=== PATIENT | male | born 1950 | race Caucasian/White ===

== ENCOUNTER → 2019-12-20 08:59 | Outpatient (BNVA) | payer MEDICARE, SELFPAY | PROVIDERS: PCP Internal Medicine; Referring Provider Internal Medicine; Visit Provider Nurse Practitioner Family | DX: Z01.810 Encounter for preprocedural cardiovascular examination (principal); I25.10 Atherosclerotic heart disease of native coronary artery without angina pectoris; I49.9 Cardiac arrhythmia, unspecified; I10 Essential (primary) hypertension; E78.5 Hyperlipidemia, unspecified; Z95.5 Presence of coronary angioplasty implant and graft | CPT/HCPCS: 99214 ==

== ENCOUNTER → 2020-07-17 09:40 | Outpatient (BNVA) | payer MEDICARE, SELFPAY | PROVIDERS: PCP Internal Medicine; Referring Provider Internal Medicine Cardiovascular Disease; Visit Provider Internal Medicine Cardiovascular Disease | DX: I25.10 Atherosclerotic heart disease of native coronary artery without angina pectoris (principal); I47.2 Ventricular tachycardia; Z79.899 Other long term (current) drug therapy; Z87.891 Personal history of nicotine dependence | CPT/HCPCS: 99212 ==

== ENCOUNTER 2020-07-22 07:38 | Outpatient (REF) | payer MEDICARE, SELFPAY ==
[2020-07-22 09:36] LABS: Cholesterol 121 mg/dL; HDL Cholesterol 38 mg/dL; LDL Cholesterol Calculated 66 mg/dl; Triglycerides 89 mg/dL
== END 2020-07-22 07:39 | disposition home or self-care (01) ==
LOC: HO.LAB 07:38
PROVIDERS: PCP Internal Medicine; Visit Provider Internal Medicine Cardiovascular Disease
DX: I25.10 Atherosclerotic heart disease of native coronary artery without angina pectoris (principal)
CPT/HCPCS: 36415; 80061

== ENCOUNTER → 2021-07-05 09:25 | Outpatient (REF) | payer MEDICARE, SELFPAY ==
--- NOTE | 2021-07-05 09:31 | CA_ITS ---
Transthoracic Echocardiogram Patient (Last, First, Middle): Roamn Barfield F Gender: Male Date of : 1950 Age: 70 Procedure Date: 07/05/2021 Procedure Type: Transthoracic Echocardiogram Location: OP Height: 185.42 cm Weight: 95.26 kg BSA: 2.20 m2 Heart Rate: bpm BP: 132 / 52 mmHg Plow Mechanic: REDDY Referring MD: Christopher Templeton MD Snuff Grinder And Screener: Christopher Templeton MD Symptoms: I47.2 - Ventricular tachycardia Study Quality: Adequate ECG Rhythm: Bradycardia Conclusions: - 1. Normal LV systolic function with grade 1 diastolic dysfunction 2. Normal cardiac valvular Doppler 3. No gross pericardial effusion Findings Left Ventricle Normal left ventricular size, thickness, and systolic function. The visually estimated ejection fraction is between 55-60%. Spectral Doppler is indicative of an impaired relaxation filling pattern. E/E prime ratio is <8, consistent with normal filling pressures. Evidence suggests grade I (mild) diastolic dysfunction. Right Ventricle Normal right ventricular cavity size and systolic function. Atria The left atrium is normal in size. There is no evidence of interatrial shunt. The right atrium is normal in size. Aortic Valve The aortic valve structure and function is likely normal. There is no aortic valve stenosis. There is no aortic valve regurgitation. Mitral Valve Normal mitral valve structure and function. There is trace mitral valve regurgitation. There is no mitral valve stenosis. Pulmonic Valve The pulmonic valve was not well visualized. Tricuspid Valve Likely normal tricuspid valve structure and function. Tricuspid regurgitation envelope is inadequate for calculation of right ventricular systolic pressure. Great Vessels All visible segments of the aorta are normal in size. The pulmonary artery was not well visualized. Small plaque is seen in the sino tubular ridge and arch. Venous The inferior vena cava is normal in size and collapses greater than 50% with inspiration. Pericardium/Pleural There is no evidence of pericardial effusion. Prior Study Comparison Changes noted compared to prior study dated: 11/16/2019. LV systolic function is marginally better Measurements 2D Linear Measurements IVSd: 0.86 0.6-0.9/0.6-1.0 cm LVIDd: 5.38 3.9-5.3/4.2-5.9 cm LVIDd Index: 2.45 2.4-3.2/2.2-3.1 cm/m2 LVIDs: 3.91 2.0-3.6 cm LVPWd: 0.63 0.7-1.1 cm LA Diam: 4.00 2.7-3.8/3.0-4.0 cm LAIDs Index: 1.82 1.5-2.3 cm/m2 LV Mass: 174.09 67-162/88-224 g LV Mass Index: 79.13 43-95/49-115 g/m2 LVOT Diam: 2.30 3.0+(-)1.3 cm Mitral Valve MV Pk E: 0.37 MV PK A: 0.52 MV Decel Time: 504.00 E/A: 0.70 E'Lateral: 5.10 E'Medial: 3.98 E/E' Med: 9.20 E/E' Lat: 7.20 PHT: 148.00 MVA PHT: 1.49 Decel [place]: 0.73 Aortic Valve AoV Pk Garry: 1.28 AoV Mn Garry: 0.85 AoV VTI: 0.31 AoV Pk Grad: 7.00 Aov Mn Grad: 3.00 LAURENT Cont.VTI: 2.75 LVOT LVOT Pk Garry: 0.97 LVOT Mn Garry: 0.60 LVOT VTI: 0.20 LVOT Pk Grad: 4.00 LVOT Mn Grad: 2.00 LVOT Diam: 2.30 LVOT Area: 4.15 Diastolic Function MV Pk E: 0.37 MV Pk A: 0.52 E/A: 0.70 E'Medial: 3.98 E/E' Med: 9.20 E' Laterial: 5.10 E/E' Lat: 7.20 Right Ventricle TAPSE (mm): 22.90 TVS' Garry: 12.50 Tricuspid Valve RA Press: 3.00 Great Vessels Aorta Sinus of Valsalva: 3.20 2.0-3.[address] [place]: 2.70 1.7-3.4 cm Ao Asc: 3.30 2.1-3.4 cm Pulmonary Veins Pulm Vein S/D 0.90 Pulmonary Valve PV Pk Garry: 1.48 Peak PV Grad: 9.00 Updated in Other Vendor System with Status of Final Christopher Templeton MD electronically signed on 07/06/2021 3:39:56 PM with status of Final
== END ==
LOC: HO.CARD 09:25
PROVIDERS: PCP Physician Assistant Medical; Visit Provider Internal Medicine Cardiovascular Disease
DX: I25.10 Atherosclerotic heart disease of native coronary artery without angina pectoris (principal); I47.2 Ventricular tachycardia
CPT/HCPCS: 93306

== ENCOUNTER → 2021-07-17 09:18 | Outpatient (BNVA) | payer MEDICARE, SELFPAY | PROVIDERS: PCP Physician Assistant Medical; Referring Provider Physician Assistant Medical; Visit Provider Internal Medicine Cardiovascular Disease | DX: I25.10 Atherosclerotic heart disease of native coronary artery without angina pectoris (principal); I47.2 Ventricular tachycardia; Z79.82 Long term (current) use of aspirin; Z79.899 Other long term (current) drug therapy | CPT/HCPCS: 93005; 99212 ==

== ENCOUNTER → 2022-07-22 08:18 | Outpatient (BNVA) | payer MEDICARE, SELFPAY | PROVIDERS: PCP Physician Assistant Medical; Referring Provider Physician Assistant Medical; Visit Provider Internal Medicine Cardiovascular Disease | DX: I25.10 Atherosclerotic heart disease of native coronary artery without angina pectoris (principal); I47.20 Ventricular tachycardia, unspecified; Z79.899 Other long term (current) drug therapy | CPT/HCPCS: 93005; 99212 ==

== ENCOUNTER 2022-07-26 13:28 | Outpatient (REF) | payer MEDICARE, SELFPAY ==
[2022-07-26 14:56] LABS: Cholesterol 129 mg/dL; HDL Cholesterol 38 mg/dL; LDL Cholesterol Calculated 71 mg/dl; Triglycerides 101 mg/dL
[2022-07-29 15:59] LABS: CRP High Sensitivity 0.4 mg/L
== END 2022-07-26 13:29 | disposition home or self-care (01) ==
LOC: HO.LAB 13:28
PROVIDERS: PCP Physician Assistant Medical; Visit Provider Internal Medicine Cardiovascular Disease
DX: I25.10 Atherosclerotic heart disease of native coronary artery without angina pectoris (principal); E78.5 Hyperlipidemia, unspecified
CPT/HCPCS: 36415; 80061; 86141

== ENCOUNTER 2023-07-22 10:50 | Outpatient (AMB) | payer MEDICARE, SELFPAY ==
--- NOTE | 2023-07-22 11:05 | A.OFFVIS_ITS ---
Vital Signs 07/22/23 11:06 Height 6 ft 1 in Weight 205 lb 0.478 oz BMI 27.0 BP 140/70 H Blood Pressure Location Lt brachial Position Sitting Pulse 53 Intake Visit Reasons: 1 yr fu Intake Note: 1 year follow-up with ekg feeling good Allergies No Known Allergies [No Known Allergies*] Allergy (Verified 07/22/22 08:32) Medication List - Last Reconciled 07/22/23 by Christopher Templeton MD allopurinol 300 mg PO DAILY amlodipine 10 mg PO DAILY aspirin 81 mg PO DAILY 90 days atorvastatin 40 mg PO DAILY metoprolol succinate ER 12.5 mg (1/2 x 25 mg) PO DAILY 90 days HPI Comments Details: Roman comes for follow-up. He has been doing very well from cardiac perspective. He says he has been exercising regularly can walk up to 80 minutes on a treadmill without symptoms. Denies any prolonged palpitation irregular heartbeat. Denies any lightheadedness, syncope. Denies any heart failure symptoms. Takes all his medications. No recent labs. [facility] Medical History RVOT ventricular tachycardia Hyperlipidemia Hypertension Ventricular arrhythmia History of [place] (myocardial infarction) Coronary artery disease Surgical History Stented coronary artery Family History Father Diabetes Mother CVD (cardiovascular disease) Social History Patient Tobacco Use Status: Never used Tobacco Review of Systems Const Denies chills, Denies fatigue, Denies fever(s), Denies frequent falls, Denies weakness, Denies weight gain and Denies weight loss ENT Denies dizziness Card Denies chest pain, Denies leg edema, Denies lightheadedness, Denies palpitations, Denies dyspnea, Denies dyspnea on exertion, Denies orthopnea and Denies other (loss of consciousness) Resp Denies cough, Denies dyspnea and Denies dyspnea on exertion GI Denies hematochezia and Denies change in stool character Musc Denies abnormal gait, Denies muscle weakness, Denies numbness, Denies radiating pain into limb and Denies tingling Neuro Denies abnormal gait, Denies dizziness, Denies frequent falls, Denies numbness, Denies tingling and Denies weakness Endo Denies fatigue and Denies palpitations Physical Exam Vital Signs: Last Vital Signs Pulse 53 07/22/23 11:06 BP 140/70 H 07/22/23 11:06 BMI result Body Mass Index 27.0 Const General: cooperative, comfortable, no acute distress, alert, awake, Physically active and well groomed Nutritional Appearance: thin Orientation/consciousness: patient oriented x3 Limitations: no limitations Neck Neck: Yes trachea midline, Yes supple and Yes no JVD Carotids: no bruits Resp Effort & Inspection: normal respiratory effort Auscultation: clear to auscultation bilaterally Cardio Jugular venous distension: no JVD Palpation: normal PMI Rate: regular rate Rhythm: regular rhythm Heart sounds: S1 normal heart sound present and S2 normal heart sound present Skin General skin exam: no rashes or lesions noted Neuro General: patient oriented x3 and no focal motor deficits Extrem General: Yes no clubbing, cyanosis or edema Psych Appearance: grossly normal Office Procedures EKG Details: EKG shows normal sinus rhythm with PACs with no acute ST T wave changes [id number], Complete Assessment & Plan Assessment & Plan (1) Coronary artery disease: Comment: history of OK with cardiac catheterization and coronary stent to OM branch 12/2018. Exercise stress test done 11/16/2019 showing good exercise tolerance, PVCs during exercise, no EKG changes of ischemia. He was started on low-dose metoprolol XL 12.5mg daily. Echo done 11/16/2019 shows EF 50-55%, no regional wall motion abnormality, no valve abnormalities. Today he has no cardiac complaints, EKG shows sinus Kameron with PACs, rate 52. He exercises 40 min daily on treadmill and tolerates well. Code(s): I25.10 - Atherosclerotic heart disease of [place] coronary artery without angina pectoris Category: Medical Plan: Coronary artery disease with prior OK with stenting of the OM branch in 2019. No symptoms at good workload. Will check myocardial perfusion imaging in 6 months time for surveillance of CAD. This was discussed with him. Continue aggressive medical therapy. Blood pressure is currently well optimized. Advised to monitor blood pressure at home maintain a log. Goal blood pressure less than 130/84. Continue low-dose aspirin therapy for life. Continue high- intensity statin therapy. Target goal LDL closer to 70 mg/dL. Advised lipid panel near future. Encouraged to continue to participate in physical activity as tolerated. (2) RVOT ventricular tachycardia: Code(s): I47.2 - Ventricular tachycardia Category: Medical Plan: RVOT ventricular tachycardia at this time of diagnose of myocardial infarction. Currently doing well on low-dose metoprolol therapy. Continue the same. Avoidance of stimulants was discussed. With follow-up Holter monitor in 6 months time. Follow-up echocardiogram 6 months time. Advised to call me with any new symptoms. Follow up in the clinic in 1 year's time, sooner p.r.n.. Thank you for allowing me to partake in his care Orders: Orders NM cardiolite stress test 6 Months I25.10 - Atherosclerotic heart disease of [place] coronary artery without angina pectoris ECG 3 day holter monitor 6 Months I47.2 - Ventricular tachycardia CA stress test 6 Months I25.10 - Atherosclerotic heart disease of [place] coronary artery without angina pectoris Lipid Panel Today I25.10 - Atherosclerotic heart disease of [place] coronary artery without angina pectoris CA echo transthoracic complete 6 Months I47.2 - Ventricular tachycardia Coding Level of Care Code Est Pt Level 4 (65889) Diagnoses Coronary artery disease I25.10 RVOT ventricular tachycardia I47.2 CPT Codes EKG - CPT: 51633-[id number], Complete ([id number])
[2023-07-22 11:06] VITALS: BP 140/70; PULSE 53; BMI 27.0
== END 2023-07-22 11:36 | disposition home or self-care (01) ==
PROVIDERS: PCP Physician Assistant Medical; Visit Provider Internal Medicine Cardiovascular Disease
DX: I25.10 Atherosclerotic heart disease of native coronary artery without angina pectoris (principal); I47.20 Ventricular tachycardia, unspecified
CPT/HCPCS: 93010; 99214

== ENCOUNTER → 2023-07-22 10:50 | Outpatient (BNVA) | payer MEDICARE, SELFPAY | PROVIDERS: PCP Physician Assistant Medical; Visit Provider Internal Medicine Cardiovascular Disease | DX: I25.10 Atherosclerotic heart disease of native coronary artery without angina pectoris (principal); I47.20 Ventricular tachycardia, unspecified; I25.2 Old myocardial infarction; Z79.82 Long term (current) use of aspirin; Z79.899 Other long term (current) drug therapy | CPT/HCPCS: 93005; 99212 ==

== ENCOUNTER → 2024-02-23 07:47 | Outpatient (REF) | payer MEDICARE, SELFPAY ==
--- NOTE | 2024-02-23 08:04 | CA_ITS ---
Transthoracic Echocardiogram Amended Patient (Last, First, Middle): Roman Barfield F Gender: Male Date of : 1950 Age: 73 Procedure Date: 02/23/2024 Procedure Type: Transthoracic Echocardiogram Location: OP Height: 185. cm Weight: 90.72 kg BSA: 2.15 m2 Heart Rate: 46 bpm BP: 125 / 55 mmHg Retail Operations Specialist: ERIC Referring MD: Christopher Templeton MD Lathe Machinist: Christopher Templeton MD Symptoms: I47.2 - Ventricular tachycardia Study Quality: Adequate ECG Rhythm: Bradycardia w/PACs Conclusions: - 1. Normal LV ejection fraction 55-60% with impaired relaxation filling pattern 2. Cardiac valvular Dopplers within normal limits 3. Mildly dilated ascending aorta at 3.7 cm 4. No gross pericardial effusion Findings Left Ventricle Normal left ventricular size, thickness, and systolic function. The visually estimated ejection fraction is between 55-60%. Spectral Doppler is indicative of an impaired relaxation filling pattern. Peak GLS is -19%, within normal limits. Right Ventricle Normal right ventricular cavity size and systolic function. Atria The left atrium is likely dilated. There is no evidence of interatrial shunt. The right atrium is normal in size. Aortic Valve The aortic valve was not well visualized. There is no aortic valve stenosis. There is no aortic valve regurgitation. Mitral Valve Likely normal mitral valve structure and function. There is trace mitral valve regurgitation. There is no mitral valve stenosis. Pulmonic Valve The pulmonic valve was not well visualized. Tricuspid Valve Likely normal tricuspid valve structure and function. Tricuspid regurgitation envelope is inadequate for calculation of right ventricular systolic pressure. Normal right atrial pressure. Great Vessels The pulmonary artery was not well visualized. There is mild dilatation of the ascending aorta measuring 3.70 cm. Small plaque is seen in the sino tubular ridge. Venous The inferior vena cava is normal in size and collapses greater than 50% with inspiration. Pericardium/Pleural There is no evidence of pericardial effusion. Measurements 2D Linear Measurements IVSd: 0.92 0.6-0.9/0.6-1.0 cm LVIDd: 5.86 3.9-5.3/4.2-5.9 cm LVIDd Index: 2.73 2.4-3.2/2.2-3.1 cm/m2 LVIDs: 3.11 2.0-3.6 cm LVPWd: 0.88 0.7-1.1 cm Ao Root: 3.20 2.1-3.5 cm LA Diam: 4.60 2.7-3.8/3.0-4.0 cm LAIDs Index: 2.14 1.5-2.3 cm/m2 LV Mass: 256.87 67-162/88-224 g LV Mass Index: 119.48 43-95/49-115 g/m2 LVOT Diam: 2.30 3.0+(-)1.3 cm 2D Volumes LA Vol: 22.40 2D Systolic Function EF 4C: 53.80 >55% EF 2C: 59.70 >55% EF BiP: 56.20 >55% Mitral Valve MV Pk E: 0.67 MV PK A: 0.90 MV Decel Time: 262.00 E/A: 0.70 E'Lateral: 7.58 E'Medial: 5.73 E/E' Med: 11.70 E/E' Lat: 8.90 PHT: 77.00 MVA PHT: 2.86 Decel [place]: 2.57 Aortic Valve AoV Pk Garry: 1.53 AoV Mn Garry: 1.03 AoV VTI: 0.37 AoV Pk Grad: 9.00 Aov Mn Grad: 5.00 LAURENT Cont.VTI: 2.79 LVOT LVOT Pk Garry: 1.12 LVOT Mn Garry: 0.72 LVOT VTI: 0.25 LVOT Pk Grad: 5.00 LVOT Mn Grad: 2.00 LVOT Diam: 2.30 LVOT Area: 4.15 Diastolic Function MV Pk E: 0.67 MV Pk A: 0.90 E/A: 0.70 E'Medial: 5.73 E/E' Med: 11.70 E' Laterial: 7.58 E/E' Lat: 8.90 Right Ventricle TAPSE (mm): 26.40 TVS' Garry: 12.90 Great Vessels Aorta Ao Root-2D: 3.20 2.0-3.7 cm Sinus of Valsalva: 3.20 2.0-3.5 cm Ao Asc: 3.70 2.1-3.4 cm Ao Arch: 3.10 Pulmonary Valve PV Pk Garry: 1.64 Peak PV Grad: 11.00 Updated in Other Vendor System with Status of Final Christopher Templeton MD electronically signed on 02/23/2024 9:51:46 AM with status of Final
== END ==
LOC: HO.CARD 07:47
PROVIDERS: PCP Physician Assistant Medical; Visit Provider Internal Medicine Cardiovascular Disease
DX: I47.20 Ventricular tachycardia, unspecified (principal)
CPT/HCPCS: 93242; 93306; 93356

== ENCOUNTER → 2024-02-23 08:04 | Outpatient (BNV) | payer MEDICARE, SELFPAY | PROVIDERS: PCP Physician Assistant Medical; Visit Provider Internal Medicine Cardiovascular Disease | DX: I25.10 Atherosclerotic heart disease of native coronary artery without angina pectoris (principal); R93.1 Abnormal findings on diagnostic imaging of heart and coronary circulation | CPT/HCPCS: 93306; 93356 ==

== ENCOUNTER → 2024-03-05 08:17 | Outpatient (REF) | payer MEDICARE, SELFPAY ==
--- NOTE | ~2024-03-05 | NM_ITS ---
EXERCISE MYOCARDIAL PERFUSION STUDY INDICATION: Coronary artery disease TECHNIQUE: The patient was brought in for an exercise perfusion study on 03/05/2024. Patient performed exercise as per Kelby protocol and was injected 25 mCi of sestamibi once target heart rate was achieved. Images were obtained using the SPECT gamma camera interlaced with the gating device. Images were obtained in supine position. Resting perfusion study was performed on 03/11/2024. Patient was administered 25 mCi of sestamibi intravenously at rest. Images were then obtained in supine position. Total DLP 76 mGy-cm. Images were processed with the software and compared side to side in short axis, horizontal long axis and vertical long axis views. FINDINGS: Raw aquisition reviewed. The stress perfusion study showed no significant perfusion defects. Both uncorrected as well as CT attenuation corrected images were reviewed. The gated study shows normal LV systolic function with calculated LVEF of 54%. LV cavity is normal in size. The gated study shows normal wall thickening and contraction of segments. Resting study shows diminished tracer uptake along the inferior wall. Improved uptake with CT attenuation correction suggestive of diaphragmatic attenuation artifact. There is also adjacent subdiaphragmatic tracer uptake.. Gating at rest reveals normal wall motion with ejection fraction at 57%. The findings are consistent with no clear reversible or fixed perfusion defects. NM/NM cardiolite stress test IMPRESSION: 1. Myocardial perfusion imaging study shows probably normal myocardial perfusion. 2. Gated LVEF is 54% during stress and 57% during rest. 3. Transient ischemic dilatation not present. EKG component of the test reported separately. Electronically signed by: Ramón Cody MD 03/11/2024 02:33 PM SANGEETA
--- NOTE | 2024-03-05 12:04 | CA_ITS ---
Acquisition Time: 2024-03-05 08:48:39 Total Exercise Time: 00:08:59 Test Indications: VENTRICULAR ARRHYTHMIA Medications: Protocol: DULCE Max HR: 133 BPM 90% of Pred: 147 BPM Max BP: 174/060 mmHG Max Work Load: 10.1 METS Exercise Stress Test with exercise 8 mins 59 secs of Dulce Protocol, acheiving 87% MPHR, with mild SOB, no chest discomfort, with frequent PACs and PVCs, ventricular couplet, with normotensive response to exercise. With borderline ST changes noted in V4-V6 with exercise. In recovery, breathing back to baseline. Nuclear images pending. Test reviewed with Dr. Cody. Referred By: Christopher Templeton Overread By: CELESTE AHN
== END ==
LOC: HO.CARD 08:17
PROVIDERS: PCP Physician Assistant Medical; Visit Provider Internal Medicine Cardiovascular Disease
DX: I25.10 Atherosclerotic heart disease of native coronary artery without angina pectoris (principal)
CPT/HCPCS: 78452; 93017; A9500; J0280; J2785

== ENCOUNTER → 2024-03-05 12:04 | Outpatient (BNV) | payer MEDICARE, SELFPAY | PROVIDERS: PCP Physician Assistant Medical; Visit Provider Nurse Practitioner Family | DX: I49.3 Ventricular premature depolarization (principal); I49.1 Atrial premature depolarization | CPT/HCPCS: 78452; 93016; 93018 ==

== ENCOUNTER 2024-07-22 14:14 | Outpatient (AMB) | payer MEDICARE, SELFPAY ==
--- NOTE | 2024-07-22 14:24 | MHC.OFFVIS ---
Vital Signs 07/22/24 14:25 Height 6 ft 1 in Weight 200 lb 9.93 oz BMI 26.5 BP 118/74 Blood Pressure Location Lt brachial Position Sitting Pulse 57 Intake Visit Reasons: 1 yr f/up Intake Note: 1 year follow-up with ekg feeling good Risk Engineer Required: No Allergies No Known Allergies [No Known Allergies*] Allergy (Verified 07/22/22 08:32) Medication List - Last Reconciled 07/22/24 by Christopher Templeton MD allopurinol 300 mg PO DAILY amlodipine 10 mg PO DAILY aspirin 81 mg PO DAILY 90 days atorvastatin 40 mg PO DAILY metoprolol succinate ER 12.5 mg (1/2 x 25 mg) PO DAILY HPI Comments Details: Roman comes for follow-up. He is grieving loss of his of 49 years in March. He otherwise has no cardiac symptoms. February he underwent workup which showed normal myocardial perfusion. Normal LV ejection fraction by echocardiogram. He denies any exertional chest pain or shortness of breath. Says remains active and walks continuously for 88 minutes. Denies any prolonged palpitation, irregular heartbeat. No lightheadedness, syncope. Takes all his medications. [facility] Medical History RVOT ventricular tachycardia Hyperlipidemia Hypertension Ventricular arrhythmia History of [place] (myocardial infarction) Coronary artery disease Surgical History Stented coronary artery Family History Father Diabetes Mother CVD (cardiovascular disease) Social History Patient Tobacco Use Status: Never used Tobacco Review of Systems Const Denies chills, Denies fatigue, Denies fever(s), Denies frequent falls, Denies weakness, Denies weight gain and Denies weight loss ENT Denies dizziness Card Denies chest pain, Denies leg edema, Denies lightheadedness, Denies palpitations, Denies dyspnea, Denies dyspnea on exertion, Denies orthopnea and Denies other (loss of consciousness) Resp Denies cough, Denies dyspnea and Denies dyspnea on exertion GI Denies hematochezia and Denies change in stool character Musc Denies abnormal gait, Denies muscle weakness, Denies numbness, Denies radiating pain into limb and Denies tingling Neuro Denies abnormal gait, Denies dizziness, Denies frequent falls, Denies numbness, Denies tingling and Denies weakness Endo Denies fatigue and Denies palpitations Physical Exam Vital Signs: Last Vital Signs Pulse 57 07/22/24 14:25 BP 118/74 07/22/24 14:25 BMI result Body Mass Index 26.5 Const General: cooperative, comfortable, no acute distress, alert, awake, Physically active and well groomed Nutritional Appearance: thin Orientation/consciousness: patient oriented x3 Limitations: no limitations Neck Neck: Yes trachea midline, Yes supple and Yes no JVD Carotids: no bruits Resp Effort & Inspection: normal respiratory effort Auscultation: clear to auscultation bilaterally Cardio Jugular venous distension: no JVD Palpation: normal PMI Rate: regular rate Rhythm: regular rhythm Heart sounds: S1 normal heart sound present and S2 normal heart sound present Skin General skin exam: no rashes or lesions noted Neuro General: patient oriented x3 and no focal motor deficits Extrem General: Yes no clubbing, cyanosis or edema Psych Appearance: grossly normal Office Procedures EKG Details: EKG shows normal sinus rhythm with PACs otherwise normal EKG [id number], Complete Assessment & Plan Assessment & Plan (1) Coronary artery disease: Comment: history of [place] with cardiac catheterization and coronary stent to [facility] 12/2018. Exercise stress test done 11/16/2019 showing good exercise tolerance, PVCs during exercise, no EKG changes of ischemia. He was started on low-dose metoprolol XL 12.5mg daily. Echo done 11/16/2019 shows EF 50-55%, no regional wall motion abnormality, no valve abnormalities. Today he has no cardiac complaints, EKG shows sinus Kameron with PACs, rate 52. He exercises 40 min daily on treadmill and tolerates well. Code(s): I25.10 - Atherosclerotic heart disease of [place] coronary artery without angina pectoris Category: Medical Plan: CAD with prior circumflex stenting with no recurrent symptoms. Currently doing well. Continue lifelong aspirin therapy. Continue high-intensity statin therapy. Advised lipid panel at least on annual basis. He will be doing blood pressure in near future. Blood pressure is currently well optimized advised to continue current therapy. Importance of good blood pressure control was discussed. Target goal blood pressure less than 130/84. (2) RVOT ventricular tachycardia: Code(s): I47.2 - Ventricular tachycardia Category: Medical Plan: Prior history of RVOT ventricular tachycardia. No clinical recurrence. No symptoms of palpitation. Continue metoprolol therapy. Avoidance of stimulants was discussed. No other therapy is recommended at this point time. Will follow up in the clinic in 1 year's time, sooner p.r.n.. Thank you for allowing me to partake in his care Orders: Orders Lipid Panel Today I25.10 - Atherosclerotic heart disease of [place] coronary artery without angina pectoris Coding Level of Care Code Est Pt Level 4 (71269) Complex EM visit Add On G2211 Diagnoses Coronary artery disease I25.10 RVOT ventricular tachycardia I47.2 CPT Codes EKG - CPT: 94888-[id number], Complete ([id number])
[2024-07-22 14:25] VITALS: BP 118/74; PULSE 57; BMI 26.5
--- OUTSIDE RECORDS SUMMARY | 2024-07-22 15:06 | XMS_ITS | Encounter Summary ---
Author Organization [facility] Address [address] [place] [address] Care Team Providers Care Shorthand Teacher Name Role Phone Rufino Carter PA-C Primary Care Provider [phone] Encounter Details Date Type Department Care Team Description 07/22/2022 Quebracho Tanner Report Medical Records [address] [place] [address] Christopher Templeton MD Social History Tobacco Use Types Packs/Day Years Used Date Smoking Tobacco: Former Pipe Q uit: 03/17/1987 Smokeless Tobacco: Never Comments:smoked pipe quit Alcohol Use Standard Drinks/Week Comments No 0 (1 standard drink = 0.6 oz pur e alcohol) Sex Assigned at Date Recorded Not on file Job Start Date Occupation Industry Not on file Not on file Not on file documented as of this encounter Plan of Treatment Not on file documented as of this encounter Visit Diagnoses Not on filedocumented in this encounter Care Teams Shorthand Teacher Relationship Specialty Start Date End Date Rufino Carter PA-C [address] [place] [address] [id number] PCP - General Internal Medicine 06/23/20 documented as of this encounter
--- OUTSIDE RECORDS SUMMARY | 2024-07-22 15:06 | XMS_ITS | Encounter Summary ---
Author Organization [facility] Address [address] [place] [address] Care Team Providers Care Test Skein Winder Name Role Phone Rufino Carter PA-C Primary Care Provider [phone] Encounter Details Date Type Department Care Team Description 07/17/2020 Cane Furniture Maker Report Medical Records [address] [place] [id number] Christopher Templeton MD Social History Tobacco Use [...] on filedocumented in this encounter Care Teams Test Skein Winder Relationship Specialty Start Date End Date Rufino Carter PA-C [address] [place] [address] [id number] PCP - General Internal Medicine 06/23/20 documented as of this encounter
--- OUTSIDE RECORDS SUMMARY | 2024-07-22 15:06 | XMS_ITS | Encounter Summary ---
Author Organization [facility] Address [address] [place] [address] Care Team Providers Care Pressure Tank Operator Name Role Phone Rufino Carter PA-C Primary Care Provider [phone] Encounter Details Date Type Department Care Team Description 07/22/2023 Assembly Room Supervisor Report Medical Records [address] [place] [address] Christopher Templeton MD Social History Tobacco Use [...] on filedocumented in this encounter Care Teams Pressure Tank Operator Relationship Specialty Start Date End Date Rufino Carter PA-C [address] [place] [address] [id number] PCP - General Internal Medicine 06/23/20 documented as of this encounter
--- OUTSIDE RECORDS SUMMARY | 2024-07-22 15:06 | XMS_ITS | Encounter Summary ---
Author Organization [facility] Address [address] [place] [address] Care Team Providers Care Child Development Assistant Name Role Phone Allan Cabrera MD Primary Care Provider [phone] Rufino Carter PA-C Primary Care Provider + [phone] Reason for Visit * Reason Comments E-prescribe Rx Request Encounter Details Date Type Department Care Team Description 02/25/2016 Refill Adult Medicine [facility] [address] [place] [address] Allan Cabrera MD [address] [place] [address] E-prescribe Rx Request Social History Tobacco Use Types Packs/Day Years [...] on file documented as of this encounter Miscellaneous Notes * Telephone Encounter - Denisse Guthrie M.A. - 02/26/2016 10:05 AM EST Component Value Date NA 144 03/22/2015 K 4.2 03/22/2015 CO2 27.9 03/22/2015 CL 101 03/22/2015 BUN 20 03/22/2015 CREAT 1.3 03/22/2015 GLU 104 03/22/2015 CA 9.8 03/22/2015 GFR 59 03/22/2015 * Telephone Encounter - Shannan Butler - 02/26/2016 9:22 AM EST Patient would like script to be: E-PRESCRIBED/FAXED TO PHARMACY WHEN WAS THE PATIENT'S LAST APPOINTMENT IN ADULT MEDICINE? 08/31/2015 WHEN WAS THE LAST TIME THE PATIENT SAW THEIR PCP? Same as above Does patient have an upcoming appointment? Yes 03/01/2016 (THE MEDICATION REQUESTED IS ON THE MED LIST ABOVE) All of the medications requested were on the CURRENT MEDS list Did you check the Pharmacy information above?: YES Patient wants: 30 -day supply Is this a mail order prescription request ? NO Patients current insurance carrier is: Payor: CHASE/[employer] POS / Plan: PPO $0 [place] [id number] / Product Type: PPO [id number] documented in this encounter Plan of Treatment Not on file documented as of this encounter Visit Diagnoses Not on filedocumented in this encounter Care Teams Child Development Assistant Relationship Specialty Start Date End Date Allan Cabrera MD [address] [place] [address] PCP - General [birth year]/17/1991 06/22/20 Rufino Carter PA-C [address] [place] [address] PCP - General Internal Medicine 06/23/20 documented as of this encounter
--- OUTSIDE RECORDS SUMMARY | 2024-07-22 15:06 | XMS_ITS | Encounter Summary ---
Author Organization [facility] Address [address] [place] [address] Care Team Providers Care Metal Trim Erector Name Role Phone Allan Cabrera MD Primary Care Provider [phone] Rufino Carter PA-C Primary Care Provider [phone] Encounter Details Date Type Department Care Team Description 06/15/2012 Release of Information Medical Records [address] [place] [address] Abstract, Provider Social History Tobacco Use Types Packs/Day Years Used Date Smoking Tobacco: Former Comments:smoked pipe quit 5 years ago Alcohol Use Standard Drinks/Week Comments Yes 0 (1 standard drink = 0.6 oz pur e alcohol) rare Sex Assigned at Date Recorded Not on file Job Start Date Occupation Industry Not on file Not on file Not on file documented as of this encounter Plan of Treatment Not on file documented as of this encounter Visit Diagnoses Not on filedocumented in this encounter Care Teams Metal Trim Erector Relationship Specialty Start Date End Date Allan Cabrera MD [address] [place] [address] PCP - General [birth year]/17/1991 06/22/20 Rufino Carter PA-C [address] [place] [address] [phone] PCP - General Internal Medicine 06/23/20 documented as of this encounter
--- OUTSIDE RECORDS SUMMARY | 2024-07-22 15:06 | XMS_ITS | Referral Summary ---
Author Organization [facility] Address [address] [place] [address] Care Team Providers Care Tunnel Worker Name Role Phone Rufino Carter Primary Care Provider [phone] Allergies No known active allergies Medications aspirin 81 MG suspension 81 mg. 07/21/2023 Active metoprolol succinate XL (TOPROL XL) 25 mg tablet 25 mg. 07/28/2023 Active amlodipine-atorv astatin (CADUET) 10-10 mg per tablet 1 tablet. 07/21/2023 Active allopurinoL (ZYLOPRIM) 300 mg tablet 300 mg. 09/30/2022 Active Social History Tobacco Use Types Packs/Day Years Used Date Smoking Tobacco: Never Smokeless Tobacco: Never Tobacco Cessation:Counseling Given: Not Answered Sex and Gender Information Value Date Recorded Sex Assigned at Male 09/23/2023 9:18 AM EDT Legal Sex Male 9:08 AM EDT Gender Identity Male 10/06/2023 3:01 PM EDT Sexual Orientation Straight 10/06/2023 3: 01 PM EDT Last Filed Vital Signs Vital Sign Reading Time Taken Comments Blood Pressure 169/67 09/23/2023 9:42 AM EDT anx ious Pulse 51 09/23/2023 9:42 AM EDT Temperature - - Respiratory Rate - - Oxygen Saturation - - Inhaled Oxygen Concentration - - Weight - - Height - - Body Mass Index - - Plan of Treatment Not on file Insurance MEDICARE [facility] SUPP Care Teams Tunnel Worker Relationship Specialty Start Date End Date Rufino Carter PCP - General Internal Medicine 09/05/23
--- OUTSIDE RECORDS SUMMARY | 2024-07-22 15:06 | XMS_ITS | Encounter Summary ---
Author Organization [facility] Address [address] [place] [address] Care Team Providers Care Security Solutions Engineer Name Role Phone Rufino Carter PA-C Primary Care Provider [phone] Encounter Details Date Type Department Care Team Description 10/29/2023 Telephone Adult Medicine [address] [phone] Rufino Carter PA-C [address] [place] [address] Social History Tobacco Use Types Packs/Day Years [...] encounter Miscellaneous Notes * Telephone Encounter - Zuly Alves Rn - 11/13/2023 11:14 AM EDT fyi to pcp Call to Pt.he is waking in the am with cramps in lower legs and feet, Was seen by a urologist, Current Outpatient Medications Medication Sig Dispense Refill ??? amlodipine (NORVASC) 10 MG tablet TAKE 1 TABLET BY MOUTH EVERY DAY 90 Tablet 1 ??? atorvastatin (LIPITOR) 40 MG tablet TAKE 1 TABLET BY MOUTH EVERY DAY 90 Tablet 0 ??? Aspirin Low Dose 81 MG EC tablet TAKE 1 TABLET BY MOUTH EVERY DAY 90 Tablet 0 ??? allopurinol (ZYLOPRIM) 300 MG tablet TAKE 1 TABLET BY MOUTH EVERY DAY 90 Tablet 0 ??? metoprolol (TOPROL-XL) 25 MG 24 hr tablet TAKE 1/2 TABLETn BY MOUTH DAILY No current facility-administered medications for this visit. Spoke to pt. He isn't overly concerned,he is waking during the night with lowe leg cramps He wasn'tsure if related to his kidneys Has seen his tufting creeler, and has f/u testing in Nov. Labs in September were normal, He is on a statin, for sometime. Offered appt. Pt refused, Triaged with advice, Pt.is marching in place daily,in front of TV, for 80 min ,keeps active Not wearing support socks, no swelling in ankles or feet at the end of the day Pt agreed to increase water intake, not taking a vit daily Pt agreed if cramping continues he will call for appt before physcial in Feb. * Telephone Encounter - Rozina Recinos R.N. - 11/06/2023 9:11 AM EDT Left vm for pt to return my call. * Telephone Encounter - Rozina Recinos R.N. - 10/29/2023 2:14 PM EDT Appointment For: Roman Barfield ([id number]) Visit Type: ANNUAL / PHY EXAM ([id number]) ?? 03/09/2024 7:30 AM 30 mins. Negro Carter PA-C ADULT [facility] ?? Patient Comments: Kidneys Left vm for pt to return my call. documented in this encounter Plan of Treatment Not on file documented as of this encounter Visit Diagnoses Not on filedocumented in this encounter Care Teams Security Solutions Engineer Relationship Specialty Start Date End Date Rufino Carter PA-C [address] [place] [phone] PCP - General Internal Medicine 06/23/20 documented as of this encounter
--- OUTSIDE RECORDS SUMMARY | 2024-07-22 15:06 | XMS_ITS | Encounter Summary ---
Author Organization [facility] Address [address] [place] [address] Care Team Providers Care Quantitative Analyst Developer Name Role Phone Allan Cabrera MD Primary Care Provider [phone] Rufino Carter PA-C Primary Care Provider [phone] Encounter Details Date Type Department Care Team Description 04/07/2014 Telephone Adult Medicine [address] [address] Allan Cabrera MD [address] [place] [address] Social History Tobacco Use Types Packs/Day Years [...] on filedocumented in this encounter Care Teams Quantitative Analyst Developer Relationship Specialty Start Date End Date Allan Cabrera MD [address] [place] [address] [phone] PCP - General [birth year]/17/1991 06/22/20 Rufino Carter PA-C [address] [place] [address] [phone] PCP - General Internal Medicine 06/23/20 documented as of this encounter
--- OUTSIDE RECORDS SUMMARY | 2024-07-22 15:06 | XMS_ITS | Encounter Summary ---
Author Organization [facility] Address [address] [place] [address] Care Team Providers Care Automated Equipment Engineer Technician Name Role Phone Rufino Carter PA-C Primary Care Provider [phone] Encounter Details Date Type Department Care Team Description 11/26/2022 Plier Worker Report Medical Records [address] [place] [address] Ja Young MD Social History Tobacco Use Types Packs/Day [...] on filedocumented in this encounter Care Teams Automated Equipment Engineer Technician Relationship Specialty Start Date End Date Rufino Carter PA-C [address] [place] [address] [phone] PCP - General Internal Medicine 06/23/20 documented as of this encounter
--- OUTSIDE RECORDS SUMMARY | 2024-07-22 15:06 | XMS_ITS | Encounter Summary ---
Author Organization [facility] Address [address] [place] [address] Care Team Providers Care Watcher Automat Long Goods Name Role Phone Rufino Carter PA-C Primary Care Provider [phone] Reason for Visit * Reason Comments E-prescribe Rx Request Encounter Details Date Type Department Care Team Description 03/25/2022 Refill Adult Medicine [address] [address] Denisha Vela PA-C [address] [place] [address] E-prescribe Rx Request Social History Tobacco Use Types Packs/Day Years Used Date Smoking Tobacco: Former Pipe Q uit: 03/17/1987 Smokeless Tobacco: Never Comments:smoked pipe quit Alcohol Use Standard Drinks/Week Comments No 0 (1 standard drink = 0.6 oz pur e alcohol) Sex Assigned at Date Recorded Not on file Job Start Date Occupation Industry Not on file Not on file Not on file COVID-19 Exposure Response Date Recorded In the last 10 days, have yo u been in contact with someone who was confirmed or suspected to have Coronavirus/COVID-19? No / Unsure 03/20/2022 10:45 AM EST documented as of this encounter Miscellaneous Notes * Telephone Encounter - Lala Alexis M.A. - 03/26/2022 3:59 PM EST Lab Results Component Value Date URICACID 4.5 02/26/2022 NICOLE 03/20/22 - PCP NOV 7/17/23 * Telephone Encounter - Jessa Nolen - 03/25/2022 10:16 AM EST Patient would like script to be: E-PRESCRIBED/FAXED TO PHARMACY WHEN WAS THE PATIENT'S LAST APPOINTMENT IN ADULT MEDICINE? 03/20/22 WHEN WAS THE LAST TIME THE PATIENT SAW THEIR PCP? Same as above Does patient have an upcoming appointment? Yes 09/30/22 (THE MEDICATION REQUESTED IS ON THE MED LIST ABOVE) All of the medications requested were on the CURRENT MEDS list Did you check the Pharmacy information above?: YES Patient wants: 90 -day supply Is this a mail order prescription request ? NO If the refill is from a FAXED refill request what is the RX # listed on the fax? N/A Patients current insurance carrier is: [place] / [place] / Product Type: MEDICARE [id number] documented in this encounter Plan of Treatment Not on file documented as of this encounter Visit Diagnoses Not on filedocumented in this encounter Care Teams Watcher Automat Long Goods Relationship Specialty Start Date End Date Rufino Carter PA-C [address] [place] [address] PCP - General Internal Medicine 06/23/20 documented as of this encounter
--- OUTSIDE RECORDS SUMMARY | 2024-07-22 15:06 | XMS_ITS | Encounter Summary ---
Author Organization [facility] Address [address] [place] [address] Care Team Providers Care Business Administration Program Chair Name Role Phone Rufino Carter PA-C Primary Care Provider [phone] Encounter Details Date Type Department Care Team Description 01/24/2023 Bobbin Coil Winder Report Medical Records [address] [place] [address] Marixa Hunter Social History Tobacco Use Types Packs/Day Years [...] suspected to have Coronavirus/COVID-19? No / Unsure 01/02/2023 10:34 AM EDT documented as of this encounter Plan of Treatment Not on file documented as of this encounter Visit Diagnoses Not on filedocumented in this encounter Care Teams Business Administration Program Chair Relationship Specialty Start Date End Date Rufino Carter PA-C [address] [place], [place] [phone] PCP - General Internal Medicine 06/23/20 documented as of this encounter
--- OUTSIDE RECORDS SUMMARY | 2024-07-22 15:06 | XMS_ITS | Encounter Summary ---
Author Organization [facility] Address [address] [place] [address] Care Team Providers Care Relief Operator Name Role Phone Allan Cabrera MD Primary Care Provider [phone] Rufino Carter PA-C Primary Care Provider [phone] Encounter Details Date Type Department Care Team Description 01/16/2015 Pt. Non Urgent Medical Question Rheumatology - [address] [address] Sunil Atkinson MD Idiopathic chronic gout of foot without tophus, unspecified laterality (Primary Dx) Social History Tobacco Use Types Packs/Day Years [...] on file documented as of this encounter Progress Notes * Tiffanie Quevedo L.P.NBecca - 01/16/2015 9:00 AM ESTFrom: Roman Lico To: Sunil Atkinson MD Sent: 01/16/2015 5:41 AM EST Subject: .6mg tablet cochicine Could you please send a new 90 day increment prescription to [facility] for my .6mg tablets ofColchicine? The prescription must be written for a 90 day supply to entitle me to get mail deliveryat a lower cost. Dr. Cabrera recently sent one but it was only for 30 days ,not the required 90 day supply. Kindly expedite so I don't run out. Thank you. Roman Barfield documented in this encounter Plan of Treatment Not on file documented as of this encounter Visit Diagnoses Diagnosis Idiopathic chronic gout of foot without tophus, unspecified laterality- Primary documented in this encounter Care Teams Relief Operator Relationship Specialty Start Date End Date Allan Cabrera MD [address] [place] [id number] PCP - General [birth year]/17/1991 06/22/20 Rufino Carter PA-C [address] [place] [phone] PCP - General Internal Medicine 06/23/20 documented as of this encounter
--- OUTSIDE RECORDS SUMMARY | 2024-07-22 15:06 | XMS_ITS | Clinical Summary ---
Author Organization [facility] Address [address] [place] [address] Care Team Providers Care Leasing Specialist Name Role Phone Rufino Carter Primary Care Provider [phone] Allergies No known active allergies Medications aspirin [...] Mass Index - - Plan of Treatment Health Maintenance Due Date Last Done Comments Cologuard 1950 Colon Cancer Screening 1950 Colonoscopy 1950 FOBT / Fit Test 1950 Hepatitis C Screening 1950 Sigmoidoscopy 1950 Medicare AWV 01/01/1952 COVID-19 Vaccine ( season) 2023 12/14/2021, 08/06/2021, 01/15/2021, Additional history exists Alcohol/Substance Use Screening 03/17/2024 09/23/2023 Depression Screening and Follow-Up 03/17/2024 Health Care Proxy Review 03/17/2024 Social Drivers of Health Annual Screening 03/17/2024 Influenza Vaccine (Season Ended) 2024 01/18/2022, 02/08/2020, 03/24/2019, Additional history exists RSV Vaccine (60+ years old and patients) (1 - 1-dose 75+ series) 2025 DTaP,Tdap,and Td Vaccines (3 - Td or Tdap) 02/07/2030 02/08/2020, 08/25/2009 Pneumococcal Vaccine: 50+ Years Completed 07/29/2017, 03/01/2016 Zoster Vaccines Completed 11/13/2020, 07/15, 07/03/2012 Hepatitis B Vaccines Aged Out No long er eligible based on patient's age to complete this topic Insurance MEDICARE [facility] Care Teams Leasing Specialist Relationship Specialty Start Date End Date Rufino Carter PCP - General Internal Medicine 09/05/23
--- OUTSIDE RECORDS SUMMARY | 2024-07-22 15:06 | XMS_ITS | Encounter Summary ---
Author Organization [facility] Address [address] [place] [address] Care Team Providers Care Paper Mill Manager Name Role Phone Rufino Carter PA-C Primary Care Provider [phone] Reason for Visit * Reason Onset Date Comments Faxed Order 04/11/2023 [facility] enter - Hearing Evaluation Encounter Details Date Type Department Care Team Description 04/11/2023 Telephone Adult Medicine [address] [address] Rufino Carter PA-C [address] [place] [phone] Faxed Order ([facility] - Hearing Evaluation) Social History Tobacco Use Types Packs/Day Years [...] on filedocumented in this encounter Care Teams Paper Mill Manager Relationship Specialty Start Date End Date Rufino Carter PA-C [address] [place] [address] PCP - General Internal Medicine 06/23/20 documented as of this encounter
--- OUTSIDE RECORDS SUMMARY | 2024-07-22 15:06 | XMS_ITS | Encounter Summary ---
Author Organization [facility] Address [address] [place] [address] Care Team Providers Care Director Of Alumni Relations Name Role Phone Rufino Carter PA-C Primary Care Provider [phone] Encounter Details Date Type Department Care Team Description 07/17/2021 Entry Clerk Report Medical Records [address] [place] [address] Christopher Templeton MD Social History Tobacco Use [...] suspected to have Coronavirus/COVID-19? No / Unsure 07/18/2021 8:27 AM EDT documented as of this encounter Plan of Treatment Not on file documented as of this encounter Visit Diagnoses Not on filedocumented in this encounter Care Teams Director Of Alumni Relations Relationship Specialty Start Date End Date Rufino Carter PA-C [address] [place], [place] [phone] PCP - General Internal Medicine 06/23/20 documented as of this encounter
--- OUTSIDE RECORDS SUMMARY | 2024-07-22 15:06 | XMS_ITS | Encounter Summary ---
Author Organization [facility] Address [address] [place] [address] Care Team Providers Care Boring Machine Operator Name Role Phone Allan Cabrera MD Primary Care Provider [phone] Rufino Carter PA-C Primary Care Provider [phone] Reason for Visit * Reason Comments E-prescribe Rx Request Encounter Details Date Type Department Care Team Description 12/14/2015 Refill Rheumatology - [place] [address] [place] [address] Zofia Aquino MD E-prescribe Rx Request Social History Tobacco Use [...] encounter Miscellaneous Notes * Telephone Encounter - Sherita Mayra - 12/14/2015 7:47 AM EDT Patient would like script to be: E-PRESCRIBED/FAXED TO PHARMACY WHEN WAS THE PATIENT'S LAST APPOINTMENT IN ADULT MEDICINE? 08/31/15 WHEN WAS THE LAST TIME THE PATIENT SAW THEIR PCP? Same as above Does patient have an upcoming appointment? Yes 03/01/16 (THE MEDICATION REQUESTED IS ON THE MED LIST ABOVE) All of the medications requested were on the CURRENT MEDS list Did you check the Pharmacy information above?: YES Patient wants: 90 -day supply Is this a mail order prescription request ? NO Patients current insurance carrier is: Payor: [employer]/[place] POS / Plan: PPO $0 [place] [id number] / Product Type: PPO [id number] documented in this encounter Plan of Treatment Not on file documented as of this encounter Visit Diagnoses Not on filedocumented in this encounter Care Teams Boring Machine Operator Relationship Specialty Start Date End Date Allan Cabrera MD [address] [place] [address] PCP - General 03/17/1991 06/22/20 Rufino Carter PA-C [address] [place] [address] [phone] PCP - General Internal Medicine 06/23/20 documented as of this encounter
--- OUTSIDE RECORDS SUMMARY | 2024-07-22 15:06 | XMS_ITS | Clinical Summary ---
Author Organization [facility] [address] [place] [address] [place] [phone] Phone Care Team Providers Care City Treasurer Name Role Phone Rufino Carter Primary Care Provider +1 -[phone] Allergies No known active allergies Medications metoprolol succinate (TOPROL-XL) 25 mg 24 hr tablet Take 0.5 tablets (12.5 mg total) by mouth 1 (one) time each day. 0 Active aspirin 81 mg EC tablet TAKE 1 TABLET BY MOUTH EVERY DAY 90 tablet 3 4 Active atorvastatin (LIPITOR) 40 mg tablet TAKE 1 TABLET BY MOUTH EVERY DAY 90 tablet 1 5 Active amLODIPine (NORVASC) 10 mg tablet TAKE 1 TABLET BY MOUTH EVERY DAY 90 tablet 1 5 Active allopurinoL (ZYLOPRIM) 300 mg tablet TAKE 1 TABLET BY MOUTH EVERY DAY 90 tablet 1 5 Active allopurinoL (ZYLOPRIM) 300 mg tablet TAKE 1 TABLET BY MOUTH EVERY DAY 90 tablet 1 4 07/22/19 25 Discontinued Active Problems Problem Noted Date Diagnosed Date Benign prostatic hyperplasia 04/04/2023 Assessment & Plan (04/16/2024 12:36 PM EST): Orders: Lipid panel with reflex to direct LDL; Future Comprehensive metabolic panel; Future Uric acid; Future Hemoglobin A1c; Future Microalbumin creatinine urine ratio; Future Hepatitis C antibody; Future CKD (chronic kidney disease) stage 3, GFR 30-59 ml/min ([facility] V24, [facility] V28) 08/09/2020 Assessment & Plan (04/16/2024 12:36 PM EST): Orders: Lipid panel with reflex to direct LDL; Future Comprehensive metabolic panel; Future Uric acid; Future Hemoglobin A1c; Future Microalbumin creatinine urine ratio; Future Hepatitis C antibody; Future Ventricular tachycardia ([facility] V24, [facility] V2 8) 12/15/2018 Overview (05/23/2023): Treated [facility] found to have sustained VT in the setting of pneumonia underwent drug-eluting stent proximal ramus Coronary artery disease 12/15/2018 Overview (05/23/2023): Presentation was ventricular tachycardia at the time of pneumonia patient was found at catheterization to have 95% ramus stenosis underwent drug-eluting stenting proximal ramus 2018 [facility] Assessment & Plan (04/16/2024 12:36 PM EST): Orders: Lipid panel with reflex to direct LDL; Future Comprehensive metabolic panel; Future Uric acid; Future Hemoglobin A1c; Future Microalbumin creatinine urine ratio; Future Hepatitis C antibody; Future Gout 04/05/2014 Overview (05/23/2023): Allopurinol started 05/01 Assessment & Plan (04/16/2024 12:36 PM EST): Orders: Lipid panel with reflex to direct LDL; Future Comprehensive metabolic panel; Future Uric acid; Future Hemoglobin A1c; Future Microalbumin creatinine urine ratio; Future Hepatitis C antibody; Future Impaired fasting glucose 03/01/2014 Assessment & Plan (04/16/2024 12:36 PM EST): Orders: Lipid panel with reflex to direct LDL; Future Comprehensive metabolic panel; Future Uric acid; Future Hemoglobin A1c; Future Microalbumin creatinine urine ratio; Future Hepatitis C antibody; Future Hypertension 01/26/2008 Assessment & Plan (04/16/2024 12:36 PM EST): Orders: Lipid panel with reflex to direct LDL; Future Comprehensive metabolic panel; Future Uric acid; Future Hemoglobin A1c; Future Microalbumin creatinine urine ratio; Future Hepatitis C antibody; Future Post-nasal drip 03/03/2007 Erectile dysfunction 09/03/2006 Hematuria 03/05/2006 Overview (05/23/2023): IMO update Proteinuria 08/29/2005 Overview (04/16/2024): IgA nephropathy Assessment & Plan (04/16/2024 12:36 PM EST): Orders: Lipid panel with reflex to direct LDL; Future Comprehensive metabolic panel; Future Uric acid; Future Hemoglobin A1c; Future Microalbumin creatinine urine ratio; Future Hepatitis C antibody; Future Urethral stricture 08/29/2005 Overview (05/23/2023): O update Hearing loss 08/29/2005 Overview (05/23/2023): [facility] update Immunizations Name Administration Dates Next Due Influenza trivalent, 0.5mL (Fluad) 65yo and olde r 04/16/2024 Influenza trivalent, 0.5mL ( Fluzone High-dose) 65yo and older 01/18/2022,02/08/2020 Moderna SARS-CoV-2 COVID-19, mRNA, LNP-S, preservative free 08/06/2021 Pneumococcal conjugate 20 va lent (Prevnar 20, PCV 20) 2mo and older 04/16/2024 Pneumococcal polysaccharide 23 valent (Pneumovax 23) 2yo and older 07/29/2017 Td Tetanus diptheria (Tdvax) 7yo and older 02/07 Tdap Tetanus diptheria acell ular pertussis (Boostrix; Adacel) 7yo and older 08/25/2009 Zoster Live 07/03/2012 Zoster recombinant (Shingrix) 19yo and older ,07/31/2020 Surgical History Surgery Date Site/Laterality Comments OTHER SURGICAL HISTORY 02/09/2002 PROCEDURE: DC COLECTOMY PARTIAL W/ANASTOMOSIS; COMMENT: large tubulovillous adenoma right colon HERNIA REPAIR PROCEDURE: REPAIR INGUINAL HERNIA; COMMENT: dr rolon on the right 2005 COLONOSCOPY 07/20/2014 PROCEDURE: HISTORICAL COLONOSCOPY; COMMENT: Normal COLONOSCOPY 04/24/2009 PROCEDURE: HISTORICAL COLONOSCOPY; COMMENT: Normal COLONOSCOPY 01/05/2004 PROCEDURE: HISTORICAL COLONOSCOPY; COMMENT: Normal COLONOSCOPY 01/21/2002 PROCEDURE: HISTORICAL COLONOSCOPY; COMMENT: large polyp right colon OTHER SURGICAL HISTORY 2019 PROCEDURE: STENT, COATED/COV W/DEL SYS; COMMENT: coronart plsty stent 2019 COLONOSCOPY 01/27/2020 PROCEDURE: HISTORICAL COLONOSCOPY; COMMENT: no polyps Medical History Medical History Date Comments Proteinuria 08/29/2005 DX:Proteinuria Urethral stricture unspecified 08/29/2005 D X:Urethral stricture unspecified Personal history of colonic polyps 08/29/2005 DX:Personal history of colonic polyps Unspecified hearing loss 08/29/2005 DX:Unsp ecified hearing loss Hematuria 03/05/2006 DX:Hematuria Impaired fasting glucose 03/01/2014 DX:Impa ired fasting glucose Achilles tendon tear -1988 DX:Achilles tendon tear; COMMENT: right - treated with PT Ventricular tachycardia (CMS /HCC V24, CMS/HCC V28) 12/15/2018 DX:Ventricular tachycardia ( HCC); COMMENT: Treated [facility] found to have sustained VT in the setting of pneumonia underwent drug-eluting stent proximal ramus Coronary artery disease 12/15/2018 DX:Coron rkistyn artery disease; COMMENT: Presentation was ventricular tachycardia at the time of pneumonia patient was found at catheterization to have 95% ramus stenosis underwent drug-eluting stenting proximal ramus 2018 [facility] Family History Medical History Relation Name Comments Other: Other Sister 1 ESRD, recd'd tr ansplant Relation Name Status Comments Father DM Mother CABG Sister 1 Sister 2 Alive kidney problem proteinuria brain aneurysm Sister 3 Alive kidney transpla nt Social History Tobacco Use Types Packs/Day Years Used Date Smoking Tobacco: Former Cigarettes Q uit: 03/17/1987 Smokeless Tobacco: Never Tobacco Cessation:Counseling Given: Not Answered Alcohol Use Standard Drinks/Week Comments No 0 (1 standard drink = 0.6 oz pur e alcohol) Sex and Gender Information Value Date Recorded Sex Assigned at Male 03/31/2024 10:16 AM EST Legal Sex Male 9:25 AM EST Gender Identity Male 03/31/2024 10:16 AM EST Sexual Orientation Straight 03/31/2024 10 :16 AM EST Obstetrics History Last Filed Vital Signs Vital Sign Reading Time Taken Comments Blood Pressure 131/55 04/16/2024 11:59 AM EST Pulse 51 04/16/2024 11:59 AM EST Temperature 36.8 ??C (98.3 ??F) 04/16/2024 11:[address] Respiratory Rate 12 04/16/2024 11:59 AM EST Oxygen Saturation - - Inhaled Oxygen Concentration - - Weight 88.7 kg (195 lb 9.6 oz) 04/16/2024 11:59 AM EST Height 185.4 cm (6' 1 ) 04/16/2024 11:59 AM EST Body Mass Index 25.81 04/16/2024 11:59 AM EST Plan of Treatment Upcoming Encounters Date Type Department Care Team (Late st Contact Info) Description 10/20/2024 8:30 AM EDT Office Visit Adult Medicine [facility] [address] [place] [address] Rufino Carter PA [address] [place] [address] Health Maintenance Due Date Last Done Comments Hepatitis C Screening 02/23/2022 Social Influencers of Health Screening 02/23/2022 COVID-19 Vaccine ( season) 2023 12/14/2021, 08/06/2021, 01/15/2021, Additional history exists Hypertension/CHF/CAD Annual BMP Blood Test 10/02/2024 10/03/2023 Depression Screening 04/16/2025 04/16/2024, 04/04/19 24 Falls Risk Assessment 04/16/2025 04/16/2024, 024 Medicare Annual Wellness Visit 04/16/2025 04/16/2024 RSV Immunization Adult Patients (1 - 1-dose 75+ series) 2025 Colorectal Cancer Screening: Colonoscopy 01/26/2027 01/27/2020 Cholesterol Screening (Lipid Panel) 10/02/2028 10/03/2023, 09/30/2022 DTaP,Tdap,and Td Vaccines (3 - Td or Tdap) 02/07/2030 02/08/2020, 08/25/2009 Abdominal Aortic Aneurysm (AAA) Screen Completed 01/30/2017 Zoster Vaccines Completed 11/13/2020, 07/15, 07/03/2012 Influenza Vaccine Completed 04/16/2024, , 02/08/2020, Additional history exists Pneumococcal Vaccine: 50+ Years Completed 04/16/2024, 07/29/2017 HIB Vaccines Aged Out No longer eligi ble based on patient's age to complete this topic HPV Vaccines Aged Out No longer eligi ble based on patient's age to complete this topic Hepatitis A Vaccines Aged Out No long er eligible based on patient's age to complete this topic Hepatitis B Vaccines Aged Out No long er eligible based on patient's age to complete this topic IPV Vaccines Aged Out No longer eligi ble based on patient's age to complete this topic MMR Vaccines Aged Out No longer eligi ble based on patient's age to complete this topic Meningococcal ACWY Vaccine Aged Out N o longer eligible based on patient's age to complete this topic Meningococcal B Vaccine Aged Out No l onger eligible based on patient's age to complete this topic RSV Immunization Patients Under 20 months Aged Out No longer eligible based on patient's age to complete this topic Varicella Vaccines Aged Out No longer eligible based on patient's age to complete this topic Procedures Procedure Name Priority Date/Time Associated Diagnosis Comments US ABDOMINAL AORTA REAL TIME SCREEN STUDY AAA Routine 01/30/2017 7:47 AM EST Encounter for screening for cardiovascular disorders from Last 3 Months or Most Recently Relevant to Health Maintenance Results * US ABDOMINAL AORTA REAL TIME SCREEN STUDY AAA (01/30/2017 7:47 AM EST) Anatomical Region Laterality Modality Ultrasound 01/24/2017 8:43 AM EST Narrative 01/30/2017 8:18 AM EST History: Screening for abdominal aortic aneurysm. Ultrasound of the abdominal aorta: The abdominal aorta is normal in course, caliber and configuration. Proximal aortic AP diameter is 2.2 cm maximum. Mid aortic diameter is 1.8 cm, and distal aortic diameter is 1.6 cm. The common iliac arteries are normal in caliber as well. IMPRESSION: Negative screening examination for abdominal aortic aneurysm. Procedure Note Wei Gary MD - 04/18/2023 History: Screening for abdominal aortic aneurysm. Ultrasound of the abdominal aorta: The abdominal aorta is normal incourse, caliber and configuration. Proximal aortic AP diameter is 2.2 cm maximum. Mid aorticdiameter is 1.8 cm, and distal aortic diameter is 1.6 cm. The common iliac arteries are normalin caliber as well. IMPRESSION: Negative screening examination for abdominal aortic aneurysm. us Allan Cabrera MD [facility] US PROCEDURES Final Result from Last 3 Months or Most Recently Relevant to Health Maintenance Insurance MEDICARE [facility] Care Teams City Treasurer Relationship Specialty Start Date End Date Rufino Carter PA [address] [place] [address] PCP - General Internal Medicine 06/23/20
--- OUTSIDE RECORDS SUMMARY | 2024-07-22 15:06 | XMS_ITS | Encounter Summary ---
Author Organization [facility] Address [address] [place] [address] Care Team Providers Care Power Shovel Mechanic Name Role Phone Allan Cabrera MD Primary Care Provider [phone] Rufino Carter PA-C Primary Care Provider [phone] Encounter Details Date Type Department Care Team Description 12/12/2015 Special Needs Nanny Report Medical Records [address] [place], [place] [id number] [place], [place] [address] [address] [place] [address] Social History Tobacco Use Types Packs/Day Years [...] on filedocumented in this encounter Care Teams Power Shovel Mechanic Relationship Specialty Start Date End Date Allan Cabrera MD [address] [place] [address] PCP - General 03/17/1991 06/22/20 Rufino Carter PA-C [address] [place], [place] [phone] PCP - General Internal Medicine 06/23/20 documented as of this encounter
--- OUTSIDE RECORDS SUMMARY | 2024-07-22 15:06 | XMS_ITS | Encounter Summary ---
Author Organization [facility] Address [address] [place] [address] Care Team Providers Care Rebar Worker Name Role Phone Allan Cabrera MD Primary Care Provider [phone] Rufino Carter PA-C Primary Care Provider [phone] Encounter Details Date Type Department Care Team Description 03/04/2016 Business Doc Medical Records [address] [place] [address] Abstract, Provider Social History Tobacco Use Types [...] on filedocumented in this encounter Care Teams Rebar Worker Relationship Specialty Start Date End Date Allan Cabrera MD [address] [place] [address] PCP - General 03/17/1991 06/22/20 Rufino Carter PA-C [address] [place] [phone] PCP - General Internal Medicine 06/23/20 documented as of this encounter
--- OUTSIDE RECORDS SUMMARY | 2024-07-22 15:06 | XMS_ITS | Encounter Summary ---
Author Organization [facility] [place] Address [address] [place] [address] Care Team Providers Care Director Of Agronomy Name Role Phone Allan Cabrera MD Primary Care Provider [phone] Rufino Carter PA-C Primary Care Provider [phone] Encounter Details Date Type Department Care Team Description 04/22/2014 Pt. Non Urgent Medical Question Adult Medicine [facility] [address] [place] [address] Allan Cabrera MD [address] [place] [address] Social History Tobacco Use Types Packs/Day Years Used Date Smoking Tobacco: Former Smokeless Tobacco: Never Comments:smoked pipe quit 5 years ago Alcohol Use Standard Drinks/Week Comments Yes 0 (1 standard drink = 0.6 oz pur e alcohol) rare Sex Assigned at Date Recorded Not on file Job Start Date Occupation Industry Not on file Not on file Not on file documented as of this encounter Progress Notes * Janice Zhang L.P.N. - 04/22/2014 8:47 AM ESTFrom: Roman Lico To: Allan Cabrera MD Sent: 04/22/2014 12:38 AM EST Subject: Error in Appt Status for 04/18/14 @ 8AM [facility] appointment [facility] on April 18, 2014 at 8am was cancelled because [facility] was closed due to a snowstorm. I called early am on the to report that I needed the appointment rescheduled which it was, to 04/19/2014 at 1:30pm. I was at that appointment. Please correct my records to eliminate the NO SHOW status; I do not expect to be billed in any way for this error on your part. documented in this encounter Plan of Treatment Not on file documented as of this encounter Visit Diagnoses Not on filedocumented in this encounter Care Teams Director Of Agronomy Relationship Specialty Start Date End Date Allan Cabrera MD [address] [place] [phone] PCP - General 03/17/1991 06/22/20 Rufino Carter PA-C [address] [place] [phone] PCP - General Internal Medicine 06/23/20 documented as of this encounter
--- OUTSIDE RECORDS SUMMARY | 2024-07-22 15:06 | XMS_ITS | Encounter Summary ---
Author Organization [facility] Address [address] [place] [address] Care Team Providers Care Proof Reader Name Role Phone Allan Cabrera MD Primary Care Provider Rufino Carter PA-C Primary Care Provider [phone] Reason for Visit * Reason Onset Date Comments Anticoagulation 11/17/2019 Colonoscopy 01/15 Dr Campbell [facility] Encounter Details Date Type Department Care Team Description 11/17/2019 Telephone Gastroenterology - [place] [address] [facility] [address] [place] [address] Simon Campbell MD Anticoagulation (Colonoscopy 01/27/2020 Dr Campbell [facility]) Social History Tobacco Use Types Packs/Day Years [...] encounter Miscellaneous Notes * Telephone Encounter - Claudia Palma L.P.N. - 11/18/2019 8:39 AM EDT Called patient. Message left regarding Ticagrelor (Brilinta) instructions & letter mailed./dg * Telephone Encounter - Claudia Palma L.P.N. - 11/18/2019 8:30 AM EDT OK to hold Ticagrelor for 7 day prior to Colonoscopy per Dr Templeton [facility] Cardiology/dg * Telephone Encounter - Claudia Palma L.P.N. - 11/17/2019 11:25 AM EDT Patient scheduled for Colonoscopy 01/27/[address] Campbell [facility]. Patient is on Ticagrelor. Called Dr Templeton's office [facility] Cardiology [phone], message left on [employer]'s Intigu[employer]. Can this patient hold his Brilinta for 7 days prior to colonoscopy He is S/P Stent on 12/02/2019./dg documented in this encounter Plan of Treatment Not on file documented as of this encounter Visit Diagnoses Not on filedocumented in this encounter Care Teams Proof Reader Relationship Specialty Start Date End Date Allan Cabrera MD [address] [place] [address] PCP - General 03/17/1991 06/22/20 Rufino Carter PA-C [address] [place] [phone] PCP - General Internal Medicine 06/23/20 documented as of this encounter
--- OUTSIDE RECORDS SUMMARY | 2024-07-22 15:06 | XMS_ITS | Encounter Summary ---
Author Organization [facility] Address [address] [place] [address] Care Team Providers Care Yard Inspector Name Role Phone Allan Cabrera MD Primary Care Provider [phone] Rufino Carter PA-C Primary Care Provider [phone] Encounter Details Date Type Department Care Team Description 01/11/2019 Old Medical Records Medical Records [address] [place] [address] Abstract, Provider Social History Tobacco Use Types [...] on filedocumented in this encounter Care Teams Yard Inspector Relationship Specialty Start Date End Date Allan Cabrera MD [address] [place] [address] PCP - General 03/17/1991 06/22/20 Rufino Carter PA-C [address] [place] [phone] PCP - General Internal Medicine 06/23/20 documented as of this encounter
--- OUTSIDE RECORDS SUMMARY | 2024-07-22 15:06 | XMS_ITS | Encounter Summary ---
Author Organization [facility] Address [address] [place] [address] Care Team Providers Care Radiation Therapist Name Role Phone Allan Cabrera MD Primary Care Provider [phone] Rufino Carter PA-C Primary Care Provider [phone] Encounter Details Date Type Department Care Team Description 02/01/2019 Optometrist Owner Report Medical Records [address] [place], [place] [id number] Christopher Templeton MD Social History Tobacco Use [...] on filedocumented in this encounter Care Teams Radiation Therapist Relationship Specialty Start Date End Date Allan Cabrera MD [address] [place] [phone] PCP - General 03/17/1991 06/22/20 Rufino Carter PA-C [address] [place] [address] [phone] PCP - General Internal Medicine 06/23/20 documented as of this encounter
--- OUTSIDE RECORDS SUMMARY | 2024-07-22 15:06 | XMS_ITS | Encounter Summary ---
Author Organization [facility] Address [address] [place] [address] Care Team Providers Care Manager It Security Name Role Phone Allan Cabrera MD Primary Care Provider [phone] [phone] Rufino Carter PA-C Primary Care Provider [phone] Encounter Details Date Type Department Care Team Description 12/21/2018 Ribbon Cleaner Report Medical Records [address] [place], [place] [id number] Christopher Templeton MD Social History Tobacco Use [...] on filedocumented in this encounter Care Teams Manager It Security Relationship Specialty Start Date End Date Allan Cabrera MD [address] [place] [address] PCP - General 03/17/1991 06/22/20 Rufino Carter PA-C [address] [place] [address] [phone] PCP - General Internal Medicine 06/23/20 documented as of this encounter
--- OUTSIDE RECORDS SUMMARY | 2024-07-22 15:06 | XMS_ITS | Encounter Summary ---
Author Organization [facility] Address [address] [place] [address] Care Team Providers Care Heading Up Machine Operator Name Role Phone Allan Cabrera MD Primary Care Provider [phone] [phone] Rufino Carter PA-C Primary Care Provider [phone] Encounter Details Date Type Department Care Team Description 08/10/2019 Tumbler Plater Report Medical Records [address] [place], [place] [phone] Christopher Templeton MD Social History Tobacco Use [...] on filedocumented in this encounter Care Teams Heading Up Machine Operator Relationship Specialty Start Date End Date Allan Cabrera MD [address] [place] [phone] PCP - General 03/17/1991 06/22/20 Rufino Carter PA-C [address] [place] [address] [phone] PCP - General Internal Medicine 06/23/20 documented as of this encounter
== END 2024-07-22 14:52 | disposition home or self-care (01) ==
LOC: HO.HCS 14:14
PROVIDERS: PCP Physician Assistant Medical; Visit Provider Internal Medicine Cardiovascular Disease
DX: I25.10 Atherosclerotic heart disease of native coronary artery without angina pectoris (principal); I47.20 Ventricular tachycardia, unspecified
CPT/HCPCS: 93010; 99214; G2211

== ENCOUNTER → 2024-07-22 14:14 | Outpatient (BNVA) | payer MEDICARE, SELFPAY | PROVIDERS: PCP Physician Assistant Medical; Visit Provider Internal Medicine Cardiovascular Disease | DX: I25.10 Atherosclerotic heart disease of native coronary artery without angina pectoris (principal); I47.20 Ventricular tachycardia, unspecified | CPT/HCPCS: 93005; 99212 ==

== ENCOUNTER 2024-08-02 10:42 | Outpatient (REF) | payer MEDICARE, SELFPAY ==
--- OUTSIDE RECORDS SUMMARY | 2024-08-02 11:22 | XMS_ITS | Encounter Summary ---
Author Organization [facility] Address [address] [place] [address] Care Team Providers Care Event Marketing Manager Name Role Phone Allan Cabrera MD Primary Care Provider [phone] Rufino Carter PA-C Primary Care Provider [phone] Reason for Visit * Reason Onset Date Comments refill request 04/21/2014 Encounter Details Date Type Department Care Team Description 04/21/2014 Refill Adult Medicine [address] [address] Allan Cabrera MD [address] [place] [address] refill request Social History Tobacco Use Types Packs/Day Years [...] encounter Miscellaneous Notes * Telephone Encounter - Kelly Mays M.A. - 04/22/2014 3:31 PM EST Message left for patient to return my call. If/when return call rx was sent to pharmacy. * Telephone Encounter - Sravani Villavicencio - 04/22/2014 8:53 AM EST Patients is calling to check the status of the refill request from yesturday. Patient would like to continuous pickling line pickler the medication today from the pharmacy * Telephone Encounter - Sravani Maye - 04/21/2014 3:21 PM EST Patient would like script to be: E-PRESCRIBED/FAXED TO PHARMACY WHEN WAS THE PATIENT'S LAST APPOINTMENT IN ADULT MEDICINE? 04/14/14 WHEN WAS THE LAST TIME THE PATIENT SAW THEIR PCP? 04/10/14 Does patient have an upcoming appointment? Yes 07/14/14 (THE MEDICATION REQUESTED IS ON THE MED LIST ABOVE) One or some of the medications requested were on the HISTORICAL MED list Did you check the Pharmacy information above?: YES Patient wants: 30 -day supply Is this a mail order prescription request ? NO Patients current insurance carrier is: Payor: [employer] POS / Plan: PPO $25 [place] [id number] / ProductType: PPO [id number] documented in this encounter Plan of Treatment Not on file documented as of this encounter Visit Diagnoses Diagnosis Encounter for long-term (current) use of other medications- Primary documented in this encounter Care Teams Event Marketing Manager Relationship Specialty Start Date End Date Allan Cabrera MD [address] [place] [address] [phone] PCP - General 03/17/1991 06/22/20 Rufino Carter PA-C [address] [place] [address] [phone] PCP - General Internal Medicine 06/23/20 documented as of this encounter
--- OUTSIDE RECORDS SUMMARY | 2024-08-02 11:22 | XMS_ITS | Encounter Summary ---
Author Organization [facility] Address [address] [place] [address] Care Team Providers Care Coal Drier Operator Name Role Phone Rufino Carter PA-C Primary Care Provider [phone] Encounter Details Date Type Department Care Team Description 07/17/2020 Instrumental Teacher Report Medical Records [address] [place] [address] Christopher Templeton MD Social History Tobacco Use [...] on filedocumented in this encounter Care Teams Coal Drier Operator Relationship Specialty Start Date End Date Rufino Carter PA-C [address] [place] [address] [phone] PCP - General Internal Medicine 06/23/20 documented as of this encounter
--- OUTSIDE RECORDS SUMMARY | 2024-08-02 11:22 | XMS_ITS | Encounter Summary ---
Author Organization [facility] Address [address] [place] [address] Care Team Providers Care Mail Processing Associate Name Role Phone Allan Cabrera MD Primary Care Provider [phone] Rufino Carter PA-C Primary Care Provider [phone] Encounter Details Date Type Department Care Team Description 04/07/2014 Telephone Adult Medicine [address] [address] Allan Cabrera MD [address] [place] [address] Social History Tobacco Use Types Packs/Day Years [...] on filedocumented in this encounter Care Teams Mail Processing Associate Relationship Specialty Start Date End Date Allan Cabrera MD [address] [place] [address] [phone] PCP - General 03/17/1991 06/22/20 Rufino Carter PA-C [address] [place] [address] [phone] PCP - General Internal Medicine 06/23/20 documented as of this encounter
--- OUTSIDE RECORDS SUMMARY | 2024-08-02 11:22 | XMS_ITS | Encounter Summary ---
Author Organization [facility] Address [address] [place] [address] Care Team Providers Care Organizational Psychologist Name Role Phone Allan Cabrera MD Primary Care Provider [phone] Rufino Carter PA-C Primary Care Provider + -[phone] Reason for Visit * Reason Comments E-prescribe Rx Request Encounter Details Date Type Department Care Team Description 02/25/2016 Refill Adult Medicine [facility] [address] [place] [address] Allan Cabrera MD [address] [place] [address] E-prescribe Rx Request Social History Tobacco Use [...] CHASE/EMILEEO POS / Plan: PPO $0 [id number] / Product Type: PPO [id number] documented in this encounter Plan of Treatment Not on file documented as of this encounter Visit Diagnoses Not on filedocumented in this encounter Care Teams Organizational Psychologist Relationship Specialty Start Date End Date Allan Cabrera MD [address] [place] [address] PCP - General 03/17/1991 06/22/20 Rufino Carter PA-C [address] [place] [address] PCP - General Internal Medicine 06/23/20 documented as of this encounter
--- OUTSIDE RECORDS SUMMARY | 2024-08-02 11:22 | XMS_ITS | Encounter Summary ---
Author Organization [facility] Address [address] [place] [address] Care Team Providers Care Grey Stock Recorder Name Role Phone Allan Cabrera MD Primary Care Provider + [phone] Rufino Carter PA-C Primary Care Provider +[phone] Reason for Visit * Reason Comments E-prescribe Rx Request Encounter Details Date Type Department Care Team Description 12/14/2015 Refill Rheumatology - [place] [address] [place] [address] Zofia Aquino MD E-prescribe Rx Request Social [...] Payor: CHASE/MADHAVI POS / Plan: PPO $0 [employer] Glass[employer] [id number] / Product Type: PPO [id number] documented in this encounter Plan of Treatment Not on file documented as of this encounter Visit Diagnoses Not on filedocumented in this encounter Care Teams Grey Stock Recorder Relationship Specialty Start Date End Date Allan Cabrera MD [address] [place] [address] PCP - General 03/17/1991 06/22/20 Rufino Carter PA-C [address] [place] [address] [phone] PCP - General Internal Medicine 06/23/20 documented as of this encounter
--- OUTSIDE RECORDS SUMMARY | 2024-08-02 11:22 | XMS_ITS | Encounter Summary ---
Author Organization [facility] Address [address] [place] [address] Care Team Providers Care Business Banker Name Role Phone Allan Cabrera MD Primary Care Provider [phone] Rufino Carter PA-C Primary Care Provider + [phone] Reason for Visit * Reason Onset Date Comments Medication 01/24/2020 Encounter Details Date Type Department Care Team Description 01/24/2020 Refill Gastroenterology - [address] [place] [phone] Simon Campbell MD Medication Social History Tobacco Use Types Packs/Day Years [...] filedocumented in this encounter Care Teams Business Banker Relationship Specialty Start Date End Date Allan Cabrera MD [address] [place] [address] PCP - General 03/17/1991 06/22/20 Rufino Carter PA-C [address] [place] [address] [phone] PCP - General Internal Medicine 06/23/20 documented as of this encounter
--- OUTSIDE RECORDS SUMMARY | 2024-08-02 11:22 | XMS_ITS | Encounter Summary ---
Author Organization [facility] Address [address] [place] [address] Care Team Providers Care Boiler Maker Name Role Phone Allan Cabrera MD Primary Care Provider [phone] Rufino Carter PA-C Primary Care Provider +1 [phone] Encounter Details Date Type Department Care Team Description 08/10/2019 Tank Farm Attendant Report Medical Records [address] [place], [place] [id number] Christopher [place] MD Social History Tobacco Use [...] on filedocumented in this encounter Care Teams Boiler Maker Relationship Specialty Start Date End Date Allan Cabrera MD [address] [place] [address] PCP - General 03/17/1991 06/22/20 Rufino Carter PA-C [address] [place] [address] [phone] PCP - General Internal Medicine 06/23/20 documented as of this encounter
--- OUTSIDE RECORDS SUMMARY | 2024-08-02 11:23 | XMS_ITS | Encounter Summary ---
Author Organization [facility] Address [address] [place] [address] Care Team Providers Care Medical Physics Teacher Name Role Phone Rufino Carter PA-C Primary Care Provider +1 [phone] Reason for Visit * Reason Comments E-prescribe Rx Request Encounter Details Date Type Department Care Team Description 03/25/2022 Refill Adult Medicine [address] [address] Denisha Vela PA-C [address] [place] [address] E-prescribe Rx Request Social History Tobacco Use [...] / Plan[place] / Product Type: MEDICARE [id number] documented in this encounter Plan of Treatment Not on file documented as of this encounter Visit Diagnoses Not on filedocumented in this encounter Care Teams Medical Physics Teacher Relationship Specialty Start Date End Date Rufino Carter PA-C [address] [place] [address] PCP - General Internal Medicine 06/23/20 documented as of this encounter
--- OUTSIDE RECORDS SUMMARY | 2024-08-02 11:23 | XMS_ITS | Encounter Summary ---
Author Organization [facility] Address [address] [place] [address] Care Team Providers Care Edger Machine Setter Name Role Phone Rufino Carter PA-C Primary Care Provider +1 [phone] Encounter Details Date Type Department Care Team Description 08/20/2022 Retail Performance Specialist Report Medical Records [address] [place] [address] Center, [facility] [address] [place], [place] [id number] Social History Tobacco Use Types Packs/Day Years [...] on filedocumented in this encounter Care Teams Edger Machine Setter Relationship Specialty Start Date End Date Rufino Carter PA-C [address] [place] [address] PCP - General Internal Medicine 06/23/20 documented as of this encounter
--- OUTSIDE RECORDS SUMMARY | 2024-08-02 11:23 | XMS_ITS | Encounter Summary ---
Author Organization [facility] Address [address] [place] [address] Care Team Providers Care Senior Engineering Team Leader Name Role Phone Rufino Carter PA-C Primary Care Provider +1 [phone] Reason for Visit * Reason Onset Date Comments Faxed Order 04/11/2023 [facility] enter - Hearing Evaluation Encounter Details Date Type Department Care Team Description 04/11/2023 Telephone Adult Medicine [address] [address] Rufino Carter PA-C [address] [place] [address] Faxed Order ([facility] - Hearing Evaluation) Social History Tobacco Use [...] on filedocumented in this encounter Care Teams Senior Engineering Team Leader Relationship Specialty Start Date End Date Rufino aCrter PA-C [address] [place] [address] PCP - General Internal Medicine 06/23/20 documented as of this encounter
--- OUTSIDE RECORDS SUMMARY | 2024-08-02 11:23 | XMS_ITS | Encounter Summary ---
Author Organization [facility] Address [address] [place] [address] Care Team Providers Care Dragger Name Role Phone Rufino Carter PA-C Primary Care Provider [phone] [phone] Encounter Details Date Type Department Care Team Description 07/17/2021 Equipment Maintenance Superintendent Report Medical Records [address] [place] [address] Christopher [place] MD Social History Tobacco Use [...] on filedocumented in this encounter Care Teams Dragger Relationship Specialty Start Date End Date Rufino Carter PA-C [address] [place], [place] [phone] PCP - General Internal Medicine 06/23/20 documented as of this encounter
--- OUTSIDE RECORDS SUMMARY | 2024-08-02 11:23 | XMS_ITS | Clinical Summary ---
Author Organization [facility] [address] [place] [address] [place] [phone] Phone Care Team Providers Care Curer Acid Drum Name Role Phone Rufino Carter Primary Care Provider +1 [phone] Allergies No known active allergies Medications metoprolol [...] kidney disease) stage 3, GFR 30-59 ml/min ([facility] V24, [facility] V28) 08/09/2020 Assessment & Plan (04/16/2024 12:36 PM EST): Orders: Lipid panel with reflex to direct LDL; Future Comprehensive metabolic panel; Future Uric acid; Future Hemoglobin A1c; Future Microalbumin creatinine urine ratio; Future Hepatitis C antibody; Future Ventricular tachycardia ([facility] V24, [facility] V2 8) 12/15/2018 Overview (05/23/2023): Treated [facility] found to have sustained VT in the setting of pneumonia underwent drug-eluting stent proximal ramus Coronary artery disease 12/15/2018 Overview (05/23/2023): Presentation was ventricular tachycardia at the time of pneumonia patient was found at catheterization to have 95% ramus stenosis underwent drug-eluting stenting proximal ramus 2018 [facility] Assessment & Plan (04/16/2024 12:36 PM [...] O update [place] 08/29/2005 [place]05[place]23/2023[place] [facility] Immunizations Name Administration Dates Next Due [...] Site/Laterality Comments OTHER SURGICAL HISTORY 02/09/2002 PROCEDURE: [place] COLECTOMY PARTIAL W/ANASTOMOSIS; COMMENT: large tubulovillous adenoma [...] 12/15/2018 DX:Ventricular tachycardia ( HCC); COMMENT: Treated [facility] found to have sustained VT in the setting of pneumonia underwent drug-eluting stent proximal ramus Coronary artery disease 12/15/2018 DX:Coron kristyn artery disease; COMMENT: Presentation was ventricular tachycardia at the time of pneumonia patient was found at catheterization to have 95% ramus stenosis underwent drug-eluting stenting proximal ramus 2018 [facility] Family History Medical History Relation Name [...] 8:30 AM EDT Office Visit Adult Medicine [facility] [address] [place] [address] Rufino Carter PA [address] [place] [address] Health Maintenance Due Date Last Done Comments [...] abdominal aortic aneurysm. us Allan Cabrera MD [facility] [place] [place] US PROCEDURES Final Result from Last 3 Months or Most Recently Relevant to Health Maintenance Insurance MEDICARE [facility] Care Teams Curer Acid Drum Relationship Specialty Start Date End Date Rufino Carter PA [address] [place] [address] PCP - General Internal Medicine 06/23/20
--- OUTSIDE RECORDS SUMMARY | 2024-08-02 11:23 | XMS_ITS | Encounter Summary ---
Author Organization [facility] Address [address] [place] [address] Care Team Providers Care Produce Specialist Name Role Phone Allan Egan MD Primary Care Provider [phone] Rufino Carter PA-C Primary Care Provider + -[phone] Reason for Referral * EXTERNAL (Priority) - Authorized/Booked Specialty Diagnoses / Procedures Referred By Contact Referred To Contact Otolaryngology / Hearing Diagnoses History of hearing loss Procedures REFERRAL TO HEARING TEST Allan Egan MD [address] [place] [address] External Hearing Referral ID Status Reason Start Date Expiration Date V isits Requested Visits Authorized SEE NOTE Authorized/B ooked 12/24/2017 03/27/2018 1 1 Reason for Visit * Reason Onset Date Comments Tube Puller Feedback 12/23/2017 [facility] nter npi [id number] Encounter Details Date Type Department Care Team Description 12/23/2017 Tele[place] [address] Allan Egan MD [address] [place] [address] Tube Puller Feedback ( [facility]pi [id number] ) Social History Tobacco Use Types Packs/Day Years [...] encounter Miscellaneous Notes * Telephone Encounter - Scarlet Watkins - 12/24/2017 8:12 AM EDT Please review this patients new referral request. The referral has been pended. Please complete thefollowing: If approved> sign order If denied>please give instructions and route to your practice nursing pool. Practice nurse should inform referrals and the patient if denied. * Telephone Encounter - Mayela Kahn - 12/23/2017 4:28 PM EDT What insurance does the patient have today? bcbs Effective 12/15/08: BCBS will not retro referral requests over 90 days. If request is for this please instruct patient to call the 800# on their insurance card to appeal. Do not submit a request. Referrals cannot be processed if the insurance is not accurate. If the insurance listed above in red is NO BILLING INFORMATION FOUND FOR THIS ENCOUTNER The patients correct insurance must be obtained and registered in [facility] or their referral can not be processed. Is this a retro request? NO. If yes for what date of service do you need the retro referral? N/A Who is calling to request this referral? Dr benavides If the caller is not the patient, what is their name? N/A Ask the patient WHO referred them to this specialty: Patient saw dr egan at [facility] for the problem and was told if symptoms did not resolve or worsen they would refer them to this specialty FIRST and LAST NAME of SPECIALIST PATIENT is seeing: [facility] [id number] What specialty is this? audiology DIAGNOSIS Patient is being seen for (Not a body part or a procedure): hearing loss Have you seen this SPECIALIST for this PROBLEM/DX before?YES If YES, when:yearly Have you checked REVIEW or the APPT DESK to see if this referral has already been done or has visits left? YES Is this visit:Follow Up Address of Specialist:[address] [facility] Phone # of Specialist:[phone] Fax #: (if applicable):[phone] Does patient have an appointment scheduled?: YES Date of appointment- (including a retro-request): 12-29-2017 Is this appointment related to: Not MVA, WC or Surgery related documented in this encounter Plan of Treatment Not on file documented as of this encounter Visit Diagnoses Diagnosis History of hearing loss- Primary Personal history of other disorders of nervous system and sense organs documented in this encounter Care Teams Produce Specialist Relationship Specialty Start Date End Date Allan Egan MD [address] [place] [address] PCP - General 03/17/1991 06/22/20 Rufino Carter PA-C [address] [place] [phone] PCP - General Internal Medicine 06/23/20 documented as of this encounter
--- OUTSIDE RECORDS SUMMARY | 2024-08-02 11:23 | XMS_ITS | Encounter Summary ---
Author Organization [facility] Address [address] [place] [address] Care Team Providers Care Clipper Counters Name Role Phone Allan Cabrera MD Primary Care Provider [phone] Rufino Carter PA-C Primary Care Provider +1 [phone] Encounter Details Date Type Department Care Team Description 03/04/2016 Business Doc Medical Records [address] [place] [address] Abstract, Provider Social History Tobacco Use Types [...] on filedocumented in this encounter Care Teams Clipper Counters Relationship Specialty Start Date End Date Allan Cabrera MD [address] [place] [address] PCP - General 03/17/1991 06/22/20 Rufino Carter PA-C [address] [place] [address] [phone] PCP - General Internal Medicine 06/23/20 documented as of this encounter
--- OUTSIDE RECORDS SUMMARY | 2024-08-02 11:23 | XMS_ITS | Referral Summary ---
Author Organization [facility] Address [address] [place] [address] Care Team Providers Care Bindery Production Manager Name Role Phone Rufino Carter Primary Care Provider Allergies No known active allergies Medications aspirin [...] of Treatment Not on file Insurance MEDICARE [facility] Care Teams Bindery Production Manager Relationship Specialty Start Date End Date Rufino Carter PCP - General Internal Medicine 09/05/23
--- OUTSIDE RECORDS SUMMARY | 2024-08-02 11:23 | XMS_ITS | Encounter Summary ---
Author Organization [facility] Address [address] [place] [address] Care Team Providers Care E Learning Developer Name Role Phone Allan Cabrera MD Primary Care Provider [phone] Rufino Carter PA-C Primary Care Provider +1 [phone] Encounter Details Date Type Department Care Team Description 11/30/2018 Hospital Medical Records [address] Social History Tobacco Use Types Packs/Day Years [...] on filedocumented in this encounter Care Teams E Learning Developer Relationship Specialty Start Date End Date Allan Cabrera MD [address] [place] [phone] PCP - General 03/17/1991 06/22/20 Rufino Carter PA-C [address] [place] [address] [phone] PCP - General Internal Medicine 06/23/20 documented as of this encounter
--- OUTSIDE RECORDS SUMMARY | 2024-08-02 11:23 | XMS_ITS | Clinical Summary ---
Author Organization [facility] Address [address] [place] [address] Care Team Providers Care Wet End Operator Name Role Phone Rufino Carter Primary Care Provider [phone] Allergies No known active allergies Medications aspirin [...] age to complete this topic Insurance MEDICARE [facility] Care Teams Wet End Operator Relationship Specialty Start Date End Date Rufino Carter PCP - General Internal Medicine 09/05/23
--- OUTSIDE RECORDS SUMMARY | 2024-08-02 11:23 | XMS_ITS | Encounter Summary ---
Author Organization [facility] Address [address] [place] [address] Care Team Providers Care Ncqa Specialist Name Role Phone Rufino Carter PA-C Primary Care Provider [phone] [phone] Encounter Details Date Type Department Care Team Description 11/26/2022 Miniature Set Constructor Report Medical Records [address] [place] [address] Ja Young MD Social History Tobacco Use [...] on filedocumented in this encounter Care Teams Ncqa Specialist Relationship Specialty Start Date End Date Rufino Carter PA-C [address] [place] [address] [phone] PCP - General Internal Medicine 06/23/20 documented as of this encounter
--- OUTSIDE RECORDS SUMMARY | 2024-08-02 11:23 | XMS_ITS | Encounter Summary ---
Author Organization [facility] Address [address] [place] [address] Care Team Providers Care Passenger Vessel Chef Name Role Phone Rufino Carter PA-C Primary Care Provider +1 [phone] Encounter Details Date Type Department Care Team Description 01/24/2023 Digital Technician Report Medical Records [address] [place] [address] Marixa Hunter Social History Tobacco Use Types [...] on filedocumented in this encounter Care Teams Passenger Vessel Chef Relationship Specialty Start Date End Date Rufino Carter PA-C [address] [place], [place] [phone] PCP - General Internal Medicine 06/23/20 documented as of this encounter
--- OUTSIDE RECORDS SUMMARY | 2024-08-02 11:23 | XMS_ITS | Encounter Summary ---
Author Organization [facility] Address [address] [place] [address] Care Team Providers Care Propeller Layout Worker Name Role Phone Allan Cabrera MD Primary Care Provider [phone] Rufino Carter PA-C Primary Care Provider +1 [phone] Encounter Details Date Type Department Care Team Description 06/15/2012 Release of Information Medical Records [address] [place] [address] Abstract, Provider Social History Tobacco Use Types [...] on filedocumented in this encounter Care Teams Propeller Layout Worker Relationship Specialty Start Date End Date Allan Cabrera MD [address] [place] [address] PCP - General 03/17/1991 06/22/20 Rufino Carter PA-C [address] [place] [address] [phone] PCP - General Internal Medicine 06/23/20 documented as of this encounter
[2024-08-02 12:14] LABS: Cholesterol 121 mg/dL (<200); HDL Cholesterol 38 mg/dL (>40); LDL Cholesterol Calculated 66 mg/dL (<100); Triglycerides 89 mg/dL (<150)
== END 2024-08-02 10:43 | disposition home or self-care (01) ==
LOC: HO.LAB 10:42
PROVIDERS: PCP Physician Assistant Medical; Visit Provider Internal Medicine Cardiovascular Disease
DX: I25.10 Atherosclerotic heart disease of native coronary artery without angina pectoris (principal)
CPT/HCPCS: 36415; 80061